=== PATIENT | male | born 1960 | race Caucasian/White ===

== ENCOUNTER 2017-09-28 07:51 | Emergency (ER) | payer OTHER ==
[~2017-09-28] VITALS: Ht 172.7 cm; Wt 78.0 kg
[2017-09-28 07:59] VITALS: BP 123/71; PULSE 75; RESP 16; TEMP 98.6; O2SAT 95
[2017-09-28] MEDS ORDERED: OXYB5TAB8 PO (08:02)
[2017-09-28] MEDS ORDERED: ZANT150T2 PO (08:02)
[2017-09-28] MEDS ORDERED: [UNRECOGNIZED DRUG - REMARK] (08:02)
[2017-09-28] MEDS ORDERED: FLUT1SPR5 EACH NARE (09:17)
--- NOTE | 2017-09-28 09:18 | PD ---
HPI Chief Complaint: Cold / Flu Symptoms Time Seen by Provider: 09:08 Travel History International Travel<30 days: No Contact w/Intl Traveler<30days: No Traveled to known affect area: No History of Present Illness HPI 57-year-old male presents to the emergency department for evaluation of nasal congestion, dry cough, sinus pressure for 4 days. He denies any fevers or chills. No abdominal pain. No nausea, vomiting. He currently rates the pain 9 /10, throbbing to the sinuses. Patient reports history of GERD and BPH. Patient has not tried anything [id number] for his symptoms. No exacerbating or alleviating factors. Moderate severity. PFSH Past Medical History Hx Anticoagulant Therapy: No Diabetes: No Diminished Hearing: No GERD: Yes Tetanus Vaccination: Unknown Past Surgical History Cholecystectomy: Yes Other Surgery: Yes (LAPROSCOPIC KNEE SX'S) Social History Alcohol Use: Yes (VERY RARE) Tobacco Use: No Substance Use: No Allergies-Medications (Allergen,Severity, Reaction): Coded Allergies: No Known Allergies (Unverified , 09/28/17) Reported Meds & Prescriptions Reported Meds & Active Scripts Active Reported [Prostrate Med] Ditropan (Oxybutynin Chloride) 5 Mg Tab 5 Mg PO DAILY Zantac (Ranitidine HCl) 150 Mg Tab 150 Mg PO BID Review of Systems Except as stated in HPI: all other systems reviewed are Neg Physical Exam Narrative GENERAL: Well-nourished, well-developed male patient, ambulatory. Afebrile. SKIN: Focused skin assessment warm/dry. HEAD: Normocephalic. Atraumatic. ENT: Mucosa pink and moist. Mild erythema without exudates. No uvular edema. No uvular, palatal, or tonsillar deviation. Airway patent. Nasal turbinates appear normal without nasal blood, purulent drainage or septal hematoma. Bilateral tympanic membranes are clear without erythema or perforation. EYES: No scleral icterus. No injection or drainage. NECK: Supple, trachea midline. No JVD or lymphadenopathy. CARDIOVASCULAR: Regular rate and rhythm without murmurs, gallops, or rubs. RESPIRATORY: Breath sounds equal bilaterally. No accessory muscle use. Lungs sounds are clear to auscultation. GASTROINTESTINAL: Abdomen soft, non-tender, nondistended. MUSCULOSKELETAL: No cyanosis, or edema. BACK: Nontender without obvious deformity. No CVA tenderness. Data Data Last Documented VS Vital Signs Date Time Temp Pulse Resp B/P (MAP) Pulse Ox O2 Delivery O2 Flow Rate FiO2 09/28/17 07:59 98.6 75 16 123/71 (88) 95 MDM Medical Decision Making Medical Screen Exam Complete: Yes Emergency Medical Condition: Yes Medical Record Reviewed: Yes Differential Diagnosis Viral URI versus sinusitis versus bronchitis Narrative Course 57-year-old male presents to the emergency department for evaluation of cold symptoms for 4 days. He appears well on exam. Symptoms are consistent with a viral URI. He is instructed take Sudafed [id number] for his symptoms. He will also be given a prescription for Flonase. He is encouraged to follow- up with his primary care physician if symptoms continue or worsen. He is to return here for any emergent condition. The patient was discharged in stable condition with instructions, including return instructions and follow up instructions. Diagnosis Primary Impression: Viral upper respiratory illness Referrals: Primary Care Physician call for appointment Patient Instructions: General Instructions, Upper Respiratory Infection (ED) Additional Instructions: [id number] Sudafed as needed to manage symptoms. Use Flonase nasal spray as directed. Follow-up with your primary care physician. Return to the emergency department for any acute worsening of symptoms. Med/Other Pt SpecificInfo: Prescription(s) given Scripts Fluticasone Nasal [place] (Flonase Nasal [place]) 50 Mcg/Act [place] 50 MCG EACH NARE BID for Allergies, #1 BOTTLE 0 Refills Prov: Ines Glasgow 09/28/17 Disposition: 01 DISCHARGE HOME Condition: Stable Ines Glasgow Sep 28, 2017 09:18
== END 2017-09-28 09:25 | disposition home or self-care (01) ==
LOC: PHEFT 07:51
DX: J06.9 Acute upper respiratory infection, unspecified (principal); R05 Cough
CPT/HCPCS: 99283